=== PATIENT | male | born 1980 | race Caucasian/White ===

== ENCOUNTER 2016-10-30 12:11 | Emergency (ER) | payer OTHER ==
[~2016-10-30] VITALS: Ht 167.6 cm; Wt 81.7 kg
[~2016-10-30 12:11] MED LIST: NORCO 5-325 TA1 EACH PO
[2016-10-30] MEDS ORDERED: KEFLEX500 MG PO (14:56)
[2016-10-30] MEDS ORDERED: MOBIC7.5 MG PO (15:05)
[2016-10-30 15:25] VITALS: BP 120/80
== END 2016-10-30 15:26 | disposition home or self-care (01) ==
LOC: ER 12:11
DX: S61.411A Laceration without foreign body of right hand, initial encounter (principal); Z23 Encounter for immunization; W26.8XXA Contact with other sharp object(s), not elsewhere classified, initial encounter; Y93.89 Activity, other specified; Y92.89 Other specified places as the place of occurrence of the external cause; Y99.8 Other external cause status

== ENCOUNTER 2016-11-06 18:01 | Emergency (ER) | payer OTHER ==
[~2016-11-06] VITALS: Ht 165.1 cm; Wt 81.7 kg
[~2016-11-06 18:01] MED LIST changes: +KEFLEX500 MG PO; +MOBIC7.5 MG PO
[2016-11-06 18:33] VITALS: BP 106/73
== END 2016-11-06 19:15 | disposition home or self-care (01) ==
LOC: ER 18:01
DX: S61.411D Laceration without foreign body of right hand, subsequent encounter (principal); F10.99 Alcohol use, unspecified with unspecified alcohol-induced disorder; W27.8XXD Contact with other nonpowered hand tool, subsequent encounter; Y92.89 Other specified places as the place of occurrence of the external cause; Y99.8 Other external cause status